=== PATIENT | male | born 1945 | race Caucasian/White ===

== ENCOUNTER 2019-12-20 19:29 | Observation (INO) | payer MEDICARE ==
[2019-12-20 21:00] LABS: CKMB 1.7 ng/mL (0-6.6)
--- NOTE | 2019-12-20 21:03 | RAD ---
ONE VIEW CHEST: History: Chest pain Comparison: 06-23-2008 FINDINGS: Cardiac silhouette is magnified by projection but is stable in size compared to prior exam. Pulmonary vasculature is within normal limits. There is suboptimal evaluation of the left lung base. There is questionable patchy airspace opacity in the retrocardiac region, lateral left lung base which could b e related to atelectasis or pneumonia. Right lung is clear. Vascular calcifications are seen in the t horacic aorta. No other interval change. IMPRESSION: Suboptimal evaluation left lung base with suggestion of patchy airspace opacity at the lateral aspect left lung base which could be related to atelectasis or pneumonia. A follow up PA and lateral chest x-ray is recommended for further evaluation of this questioned abnormality. POS: PARMINDER
--- NOTE | 2019-12-20 21:54 | PDOC.FPRHP ---
- History of Present Illness Chief Complaint: Chest pain History of Present Illness: Pt. is a 74 yo male with PMH of kidney cancer (on chemo for 15 years), HTN, CAD s/p stents, DM, HLD, CKD 3, hypothyroid, and GERD who was transferred from [place] ED for chest pain. According to the patient, the chest pain is central and began last night. He reports that it is worse with deep inspiration. He describes the pain as "indigestion", but reports that it is sometimes worse with activity and can often make cause him to be SOB. He reports that it improved with rest. He reports a history of similar pain that he attributes to indigestion, but says that this pain is worse. He denies any radiation of the pain. He endorses some nausea early that has since resolved. The patient is not currently experiencing chest pain. The patient's software technician is Dr. Cotter and his can closing machine tender is Dr. Mcdonald. He reports that his last stress test was 1 year ago and he was told that there were no concerns at that time. - Allergies/Adverse Reactions Allergies Allergy/AdvReac Type Severity Reaction Status Date / Time No Known Drug Allergies Allergy Verified 12/21/19 04:05 - Home Medications Medication Instructions Recorded Confirmed Type Citalopram [CeleXA] 10 mg PO HS 12/21/19 12/21/19 History Clopidogrel Bisulfate [Clopidogrel] 75 mg PO HS 12/21/19 12/21/19 History Febuxostat [Uloric] 40 mg PO DAILY 12/21/19 12/21/19 History Icosapent Ethyl [Vascepa] 2 gm PO BID- 12/21/19 12/21/19 History Levothyroxine Sodium [Synthroid] 25 mcg PO 0600 12/21/19 12/21/19 History Loperamide HCl [Loperamide] 2 mg PO QID PRN 12/21/19 12/21/19 History Metoprolol Succinate [Toprol XL] 150 mg PO DAILY 12/21/19 12/21/19 History Mirtazapine [Remeron] 30 mg PO HS 12/21/19 12/21/19 History NIFEdipine [Procardia XL] 30 mg PO DAILY 12/21/19 12/21/19 History Ondansetron [Zofran ODT] 4 mg PO Q8HR PRN 12/21/19 12/21/19 History Pitavastatin Calcium [Livalo] 2 mg PO HS 12/21/19 12/21/19 History Zolpidem Tartrate [Ambien] 10 mg PO HS 12/21/19 12/21/19 History glipiZIDE [Glipizide] 5 mg PO BID 12/21/19 12/21/19 History hydrALAZINE HCl 100 mg PO TID 12/21/19 12/21/19 History predniSONE [Prednisone] 40 mg PO DAILY PRN 12/21/19 12/21/19 History traMADol HCl [Tramadol HCl] 50 mg PO Q6H PRN 12/21/19 12/21/19 History - History PMHx: kidney cancer, HTN, CAD s/p stents, DM, HLD, CKD 3, GERD PSHx: Nephrectomy, craniotomy for metastatic brain tumor, cholecystectomy FHx: Dad - Lung cancer; hx of htn, dm Social: denies t/a/d; 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 denies: nasal congestion Respiratory: reports: cough, shortness of breath Cardiovascular: reports: chest pain, edema. denies: palpitation Gastrointestinal: reports: nausea, diarrhea. denies: vomiting, abdominal pain, GI bleeding Genitourinary: denies: dysuria, polyuria Skin: denies: rashes, jaundice Musculoskeletal: denies: pain, tenderness Neurological: denies: numbness, syncope Psychological: denies: anxiety, depression - Vital signs BP: 122/69 HR: 78 RR: 18 Tmax: 98 Pox: 97% on RA Wt: 95 kg - Physical Exam Constitutional: NAD, awake, alert and oriented HEENT: normocephalic and atraumatic, PERRLA, EOMI, grossly normal vision, grossly normal hearing, MMM Neck: supple, FROM Heart: RRR, normal S1/S2, no murmurs/rubs/gallops -Heart: 1+ BLE edema to mid galvez Lungs: CTAB, no respiratory distress Abdomen: soft, non-tender, bowel sounds present Musculoskeletal: normal structure, normal tone Neurological: no focal deficit, normal sensation Skin: no rash/lesions, no jaundice Heme/Lymphatic: no unusual bruising or bleeding, no purpura, no petechia Psychiatric: normal mood and affect, good judgment and insight, intact recent and remote memory FMR H&P: Results - Labs Result Diagrams: 12/21/19 04:16 12/21/19 04:16 Lab results: Outside hospital: COVID: negative D-Dimer: 2.95 LA: 1.5 TSH: 1.91 BNP: 116 GFR: 43 Lipase: 58 Ma.9 Glucose: 139, BUN: 23, Cr: 1.55, Na: 143, K: 3.8, Cl: 108, CO2: 22, Ca: 8, WBC: 15.6, Hgb: 14.9, Hct: 44.9, Plt: 157 CK-MB (CK-2) 1.7 ng/mL (0-6.6) 12/20/19 20:04 - EKG Interpretation EKG: NSR - Radiology Interpretation CT scan - abdomen Additional comment: Outside hospital: No acute intra-abdominal abnormality CT scan - chest Additional comment: Outside hospital: 1. No central PE 2. Nonspecific cavitary lesion in superior segment of right lower lobe and small nodules in the superior segment of the left lower lobe. Primary or metastatic malignancy to be considered Chest x-ray Additional comment: Outside hospital: No acute cardiopulmonary process FMR H&P: A/P - Plan Atypical Chest Pain - likely 2/2 to GERD vs. ACS - trop: 0.02 > 0.031; will continue to trend - EKG: NSR, no st changes - s/p nitro and aspirin - Applications Engineering Manager: Dr. Cotter, will notify tomorrow - hx of CAD s/p stents ~ 10 years ago - Echo and stress test ordered, will hold home beta-claribel for stress test - will admit to tele for further monitoring - fasting lipid panel pending - will start aspirin - chest pain has resolved at this time, but if patient develops chest pain consider GI cocktail as patient describes pain as "indigestion" Cavitary Lesion seen on CTA of chest - will monitor patient for signs/symptoms of infection - procal pending, consider antibiotics - patient will likely to need to f/u with oncologist Chronic conditions: CAD s/p stents: see above, will continue home plavix, will start aspirin DM: continue home medications CKD 3: appears to be at baseline, will monitor; Dr. Mcdonald is patient's can closing machine tender, consider notifying tomorrow Kidney cancer: aware Hypothyroid: TSH at outside hospital HLD: fasting lipid panel pending, continue home statin HTN: continue home meds, will hold home BB due to stress test tomorrow GERD: continue home meds PCP: Hugo Patel [place] Code: Full Diet: HH, NPO at midnight for Stress IVF: none PPx: Lovenox Dispo: will admit to tele for further observation; likely LOS < 48 hrs FMR H&P: Upper Level - Plan Date/Time: 12/20/192151 I, Pat Herman MD, have evaluated this patient and agree with findings/plan as outlined by regulatory internship resident. Pertinent changes/additions are listed here. This is a 74yo M here today as a transfer from [place] with a CC of chest pain. Reports he felt a dull ache last night that was worse when he woke up this morning. Reports nausea initially but his has resolved. Decreased appetite today. Reports exertion makes it worse. Resting makes it better. Reports he does have a hx of GERD and states it is similar, but worse. Worse with a deep breath. No radiation of pain. He does take prilosec. He has a PMH significant for kidney cancer on chemo for 15 years. Follows up with MD Baker. Had brain tumor removed also. Denies headache, fever. Endorses nasal congestion and cough. Denies vomiting, diaphoresis, constipation. Endorses diarrhea from chemo. See's Dr. Yang. Had 2 stents placed about 10 years ago. In the ER he was given ASA and nitro. PE was significant for 1+ pitting edema b/l LE, RRR, CTAB. Will admit patient to tele, obs for ACS r/o. Heart score of 5. Will trend troponin. EKG with no ST changes. BNP mildly elevated, some pitting edema. Will get echo and stress test. Can consider cards consult pending these results. Continue medications for chronic conditions. Dispo: admit tele, obs Diet: HH Code: FULL Case discussed with Dr. Roche. See regulatory internship note for full History details. Addendum - Attending - Attending Attestation Date/Time: 12/20/192214 I personally evaluated the patient and discussed the management with Dr. Llamas and Dr. Herman I agree with the History, Examination, Assessment and Plan documented above with any addition or exceptions noted below. 74 yo male with hx of Renal cell carcinoma s/p snf chemo therapy and CAD presents with chest pain. Patient presented earlier today to outside facility and was transferred here. Reported central CP. Occurred at rest tonight. Described as "indigestion." Has noted CP with activity and associated with SOB. No other related/associated symptoms tonight. CP now resolved. Received nitro, ASA. Will admit to tele for obs and ACS workup. - Atypical Angina: Patient with hx of CAD s/p stent x 2. Other risk include obesity, cancer, HTN, HLD, DM, and CKD3. Currently on DAPT. In hx describes CP that appears as typical angina. Unsure if tonights episode related to GI issues or unstable angina. Now resolved. Vague descriptions by patient. Trop neg then indeterminate but risk present for mildly elevated trop. No EKG changes. Continue to trend trop. Will stress in AM. Notify pts cards MD in AM. Echo. Mild elevated BNP with +1 pitting edema to bilateral LE up to mid calf. - Electrolyte abnormalities: Adjust/treat. Continue tele monitoring. Trend. - Microcytic anemia: Likely chronic. No new complaints but if CP related to gastritis concern for acute blood loss and iron def. Will follow up with PCP. La bs as needed. Monitor. Unsymptomatic at this time. - Borderline low platelets: Follow up with PCP. No recent labs within our system to compare. Unsure outpatient workup. Will discuss with patient. Still > 120. - Left Lung lesion with hx of COVID 19 infection: Infx now resolved. No persistent symptoms. Initial PA noted concerning lesion. Lateral obtained and appears WNL. - Continue to adjust home meds based on chronic conditions and new findings. Earline
--- NOTE | 2019-12-20 23:08 | RAD ---
PA AND LATERAL CHEST: Date: 12/20/2019 HISTORY: COVID-positive 2 months ago. Reporting pain on inspiration to center of chest. COMPARISON: Earlier examination done tonight. FINDINGS: The heart size appears slightly enlarged. No definite infiltrative process is seen in the left base o n this examination. IMPRESSION: Mild cardiomegaly. No active intrathoracic disease. POS: OFF
[2019-12-20] MEDS ORDERED: Acetaminophen 325 MG TAB PO PRN (23:10)
[2019-12-20] MEDS ORDERED: Ondansetron ODT 4 MG TAB PO PRN (23:10)
[2019-12-20 23:41] LABS: Troponin I 0.059 ng/mL (< 0.028)
[2019-12-21 00:33] LABS: Magnesium 1.2 mg/dL (1.6-2.6); Phosphorus 2.9 mg/dL (2.3-4.7)
[2019-12-21] MEDS ORDERED: Magnesium 2 GM/50 ML 2 GM in Premix Bag 1 BAG IVPB SCH (01:00)
[2019-12-21] MEDS ORDERED: traMADol HCl 50 MG TAB PO PRN (01:48)
[2019-12-21] MEDS ORDERED: Loperamide HCl 2 MG CAP PO PRN (01:48)
[2019-12-21] MEDS ORDERED: predniSONE 20 MG TAB PO PRN (01:48)
[2019-12-21] MEDS ORDERED: Ondansetron ODT 4 MG TAB PO PRN (01:48)
[2019-12-21 01:56] VITALS: BMI 29.0
[2019-12-21] MEDS ORDERED: Atorvastatin Calcium 10 MG TAB PO SCH ×2 (02:15→21:00)
[2019-12-21] MEDS ORDERED: Citalopram 10 MG TAB PO SCH ×2 (02:15→21:00)
[2019-12-21] MEDS ORDERED: hydrALAZINE 25 MG TAB PO SCH ×2 (02:15→09:00)
[2019-12-21] MEDS ORDERED: Clopidogrel Bisulfate 75 MG TAB PO SCH ×2 (02:15→21:00)
[2019-12-21] MEDS ORDERED: Zolpidem Tartrate 5 MG TAB PO SCH ×2 (02:15→21:00)
[2019-12-21] MEDS ORDERED: Mirtazapine 30 MG TAB PO SCH ×2 (02:15→21:00)
[2019-12-21 04:56] LABS: #Eosinphils 0.1 thou/uL (0.0-0.7); #Monocytes 0.8 thou/uL (0.11-0.59); #Neutrophils 9.1 thou/uL (1.40-6.50); %Basophils 0.2 % (0.0-1.0); %Eosinophils 0.7 % (0.0-10.0); %Lymphocytes 9.1 % (21.0-51.0); %Monocytes 7.2 % (0.0-10.0); %Neutrophils 82.8 % (42.0-75.0); Hemoglobin 12.8 g/dL (14.0-18.0); Mean Corpuscular Hemoglobin 32.5 pg (27.0-31.0); Mean Corpuscular Volume 98.6 fL (78.0-98.0); Mean Platelet Volume 9.1 fL (7.4-10.4); Platelet Count 123 thou/uL (130-400); Red Blood Cell (RBC) Count 3.93 mill/uL (4.70-6.10)
[2019-12-21 05:25] LABS: ALT (SGPT) 48 U/L (8-55); AST (SGOT) 40 U/L (5-34); Albumin 2.9 g/dL (3.4-4.8); Alkaline Phosphatase 87 U/L (40-110); Anion Gap 13 mmol/L (10-20); BUN (Urea Nitrogen) 24 mg/dL (8.4-25.7); Bilirubin, Total 0.9 mg/dL (0.2-1.2); Calc. Creatinine Clearance 47 mL/min (70-130); Calcium 7.1 mg/dL (7.8-10.44); Carbon Dioxide 23 mmol/L (23-31); Cardiac Risk 2.8 (Less than 4.5); Chloride 106 mmol/L (98-107); Cholesterol 102 mg/dl (< 200 Desired); Estimated GFR-MDRD 38; Globulin 2.6 g/dL (2.4-3.5); Glucose 142 mg/dL (83-110); HDL Cholesterol 36 mg/dL (>60 Neg Risk); LDL Cholesterol, Calculated 41 mg/dL; Magnesium 1.9 mg/dL (1.6-2.6); Potassium 3.5 mmol/L (3.5-5.1); Protein, Total 5.5 g/dL (5.8-8.1); Sodium 138 mmol/L (136-145); Triglycerides 124 mg/dL (Less than 150)
[2019-12-21] MEDS ORDERED: Levothyroxine Sodium 25 MCG TAB PO SCH (06:00)
--- NOTE | 2019-12-21 06:20 | PDOC.FM ---
- Subjective Subjective: Pt states CP has resolved. Described his pain yesterday as feeling like it was related to his esophagus although he denies association with food. Pain was worse with activity and resolved with rest. Denies CP, SOB, abd pain, N/V. - Objective Vital Signs & Weight: Vital Signs (12 hours) Temp Pulse Resp BP BP Pulse Ox 12/21/19 02:31 72 119/75 12/21/19 00:46 97.8 F 73 18 122/65 95 Weight Weight 94.393 kg I&O: 12/19/19 12/20/19 12/21/19 06:59 06:59 06:59 Intake Total 410 Output Total 200 Balance 210 Result Diagrams: 12/21/19 04:16 12/21/19 04:16 Phys Exam - Physical Examination Constitutional: NAD HEENT: moist MMs, sclera anicteric Neck: supple, full ROM Respiratory: no wheezing, clear to auscultation bilateral Cardiovascular: RRR, no significant murmur Gastrointestinal: soft, non-tender, no distention Musculoskeletal: no edema, pulses present Neurological: non-focal, moves all 4 limbs Psychiatric: normal affect, A&O x 3 Skin: no rash, cap refill <2 seconds Dx/Plan - Plan Plan: #Typical Chest Pain - likely 2/2 to GERD vs. ACS - trop: 0.03, 0.059, 0.03 - Tele monitor: NSR - Roller Coaster Engineer: Dr. Cotter- can consult pending stress results - hx of CAD s/p stents ~ 10 years ago - pending: echo and NM stress. BBlocker held #Cavitary Lesion seen on CTA of chest (outside hospital) - CXR 12/20/19: no acute process - will monitor patient for signs/symptoms of infection - can f/u outpatient oncology #CAD s/p stents -continue home plavix, will start aspirin #DM: -continue home medications #CKD 3/Renal Cancer - appears to be at baseline, will monitor - Dr. De Leon outpatient rn acute - [facility] oncology #Hypothyroid -continue home meds #HLD -continue home statin #HTN -continue home meds -BB held due to stress test today #GERD -continue home meds PCP: Hugo Man Code: Full Diet: HH, NPO at midnight for Stress IVF: none PPx: Lovenox Dispo: will admit to tele for further observation; likely LOS < 48 hrs Addendum - Attending - Attending Attestation Date/Time: 12/21/19 [id number] I personally evaluated the patient and discussed the management with Dr. Sanabria. I agree with the History, Examination, Assessment and Plan documented above with any addition or exceptions noted below.
[2019-12-21] MEDS ORDERED: glipiZIDE 5 MG TAB PO SCH (08:00)
[2019-12-21] MEDS ORDERED: Icosapent Ethyl 1 GM CAPSULE PO SCH (08:00)
[2019-12-21] MEDS ORDERED: Enoxaparin Sodium 40 MG/0.4 ML SYRINGE SC SCH (09:00)
[2019-12-21] MEDS ORDERED: Aspirin 81 mg Enteric Coated Tablet PO SCH (09:00)
[2019-12-21] MEDS ORDERED: NIFEdipine XL 30 MG TAB PO SCH (09:00)
[2019-12-21] MEDS ORDERED: Febuxostat 40 MG TAB PO SCH (09:00)
[2019-12-21] MEDS ORDERED: ADENOSINE 60 MG/20 ML VIAL ONE (10:08)
--- NOTE | 2019-12-21 12:03 | NM ---
EXAM: CARDIAC SPECT HISTORY: Chest pain, hypertension, coronary artery disease, dyslipidemia, diabetes mellitus, stent TECHNIQUE: A myocardial perfusion scan was performed using the single isotope 1 day protocol with jefferson hnetium 99m sestamibi. [10 mCi] was injected intravenously for the rest exam followed by 30 mCi for the stress study. Pharmacologic stress with adenosine was monitored and interpreted by Dr. Cotter FINDINGS: Homogeneous tracer distribution is seen in the myocardial segments on stress and rest image s without fixed or reversible defects. Gated SPECT LVEF: 60% Wall motion exam: Normal IMPRESSION: Normal myocardial perfusion scan
[2019-12-21 12:17] VITALS: BP 150/68; TEMP 97.8
--- NOTE | 2019-12-22 08:30 | DIS ---
DATE OF ADMISSION: 12/20/2019 DATE OF DISCHARGE: 12/21/2019 RESIDENT: Comfort Sanabria MD, PGY-1 ADMITTING ATTENDING: Dick Frazier MD DISCHARGE ATTENDING: Bipin Mello MD CONSULTS: None. PROCEDURE: Nuclear medicine stress test. IMPRESSION: 1. Normal myocardial perfusion scan. 2. Left ventricular ejection fraction 60%. PRIMARY DIAGNOSIS: Typical chest pain. SECONDARY DIAGNOSES: 1. Coronary artery disease, status post stents. 2. Cavitary lesions seen on a CTA of the chest. 3. Diabetes mellitus. 4. Chronic kidney disease. 5. Hypothyroidism. 6. Hyperlipidemia. 7. Hypertension. 8. Gastroesophageal reflux disease. DISCHARGE MEDICATIONS: 1. Citalopram 10 mg daily. 2. Clopidogrel 75 mg daily. 3. Febuxostat 40 mg daily. 4. Glipizide 5 mg b.i.d. 5. Hydralazine 100 mg t.i.d. 6. Vascepa 2 g b.i.d. 7. Levothyroxine 25 mcg daily. 8. Loperamide 2 mg as needed. 9. Metoprolol succinate 150 mg daily. 10. Mirtazapine 30 mg daily. 11. Nifedipine 30 mg daily. 12. Zofran 4 mg as needed. 13. Pitavastatin calcium 2 mg daily. 14. Prednisone 40 mg daily as needed. 15. Tramadol 50 mg q.6 hours as needed. 16. Ambien 10 mg daily. DISCONTINUED MEDICATIONS: None. HISTORY OF PRESENT ILLNESS: A 74-year-old male with a history of hypertension, coronary artery disease, diabetes, hyperlipidemia, CKD, and renal cancer transferred from [facility] for chest pain. The chest pain is located in the center of the chest, worse with deep breath. Feels like "indigestion." The pain is worse with activity and better with rest. Associated with shortness of breath and some nausea. The patient sees Dr. Cotter, crew attendant, outpatient, and Dr. De Leon, Nephrology, outpatient. A CTA of the chest done at an outside hospital showed a possible nonspecific cavitary lesion in the superior segment of the right lower lobe and small nodules in the superior segment of the left lower lobe. Primary or metastatic malignancy is to be considered. HOSPITAL COURSE: A chest x-ray at our hospital showed no acute cardiopulmonary process. Upon arrival to our hospital, labs were as follows: Troponin 0.03, 0.05, and 0.03. Creatinine 1.77. Magnesium 1.2. The patient's chest pain improved overnight. Next day, had a nuclear medicine stress test with results as above. She was stable for discharge to follow up with his outpatient crew attendant and primary care physician. DISPOSITION: Stable. DISCHARGE INSTRUCTIONS: 1. Location: Home. 2. Diet: Heart healthy. 3. Activity: As tolerated. 4. Followup: With Dr. Cotter, Cardiology, and primary care physician. Job ID: [id number] [facility]ung
== END 2019-12-21 13:35 | disposition home or self-care (01) ==
LOC: ERS 19:29 → 2SW 22:02
PROVIDERS: ADMIT Internal Medicine; ATTEND Student in an Organized Health Care Education/Training Program
DX: R07.89 Other chest pain (principal); I25.10 Atherosclerotic heart disease of native coronary artery without angina pectoris; I12.9 Hypertensive chronic kidney disease with stage 1 through stage 4 chronic kidney disease, or unspecified chronic kidney disease; E11.22 Type 2 diabetes mellitus with diabetic chronic kidney disease; N18.30 Chronic kidney disease, stage 3 unspecified; K21.9 Gastro-esophageal reflux disease without esophagitis; D50.9 Iron deficiency anemia, unspecified; E03.9 Hypothyroidism, unspecified; Z79.02 Long term (current) use of antithrombotics/antiplatelets; Z79.84 Long term (current) use of oral hypoglycemic drugs; Z79.899 Other long term (current) drug therapy; Z86.19 Personal history of other infectious and parasitic diseases; Z85.528 Personal history of other malignant neoplasm of kidney; Z95.5 Presence of coronary angioplasty implant and graft
CPT/HCPCS: 71045; 71046; 78452; 80053; 80061; 82553; 83735 ×2; 84100; 84145; 84484 ×3; 85025; 93005; 93017; 96365; 99285; A9500; G0378 ×3; 36415; J0153; J3475